=== PATIENT | male | born 1990 | race Two or more races ===

== ENCOUNTER 2024-07-04 20:32 | Emergency (ER) | payer OTHER ==
[~2024-07-04] VITALS: Ht 180.3 cm; Wt 105.2 kg
[2024-07-04] MEDS ORDERED: ORPHENADRINE CITRATE 30 MG/ML AMPUL IM ONE (21:30)
[2024-07-04] MEDS ORDERED: KETOROLAC TROMETHAMINE 60 MG VIAL IM ONE (21:30)
== END 2024-07-05 04:24 | disposition home or self-care (01) ==
LOC: ER 20:34
DX: M25.521 Pain in right elbow (principal); S50.01XA Contusion of right elbow, initial encounter; M70.22 Olecranon bursitis, left elbow

== ENCOUNTER 2025-02-19 19:28 | Emergency (ER) | payer OTHER ==
[~2025-02-19] VITALS: Ht 180.3 cm; Wt 90.7 kg
[2025-02-19 20:37] LABS: COVID-19 AG NEGATIVE (NEGATIVE)
[2025-02-19 20:46] LABS: INFLUENZA A AG NEGATIVE (NEGATIVE); INFLUENZA B AG NEGATIVE (NEGATIVE)
== END 2025-02-19 21:25 | disposition home or self-care (01) ==
LOC: ER 19:41
PROVIDERS: General Practice
DX: J06.9 Acute upper respiratory infection, unspecified (principal); Z20.822 Contact with and (suspected) exposure to COVID-19